=== PATIENT | male | born 2005 | race Hispanic/Latino ===

== ENCOUNTER 2024-11-30 14:48 | Emergency (ER) | payer SELFPAY ==
[2024-11-30 14:53] VITALS: BP 132/61; PULSE 83; RESP 18; TEMP 37.3; O2SAT 100; BMI 22.0
--- NOTE | 2024-11-30 15:56 | ED_ITS ---
HPI - Wound/Laceration <OSCAR Koenig Last Filed: 11/30/24 17:45> General Chief Complaint: Wound/Laceration Stated Complaint: RT leg laceration Time Seen by Provider: 11/30/24 15:53 Source: patient Mode of arrival: Wheelchair History of Present Illness HPI narrative: This is a 19-year-old male presents emergency department due to a right thigh laceration. He was using a sizable when the wood slipped out from under him and he cut his right medial lateral distal thigh. States that there was some oozing blood but that stopped. Denies any numbness. Denies any changes in range of motion although it does feel limited due to pain. Tetanus is not up-to-date. Related Data Previous Rx's ?Medication ?Instructions ?Recorded cephalexin 500 mg capsule 500 mg PO QID #20 caps 11/30 Allergies Allergy/AdvReac Type Severity Reaction Status Date / Time No Known Allergies Allergy Mild Verified 11/30/24 14:59 Review of Systems <OSCAR Koenig Last Filed: 11/30/24 17:45> Review of Systems Narrative: GENERAL: Denies chills, fatigue, malaise, fever, sweats. HEENT: Denies sinus pain, ear pain, sore throat, difficulty swallowing, dizziness. RESPIRATORY: Denies dyspnea, cough, wheezing, hemoptysis, sputum. CARDIOVASCULAR: Denies chest pain, palpitations, orthopnea, edema, GASTROINTESTINAL: Denies nausea, vomiting, abdominal pain, diarrhea, constipation, melena. : Denies dysuria, frequency, incontinence, hematuria, urinary retention. MUSCULOSKELETAL: Right thigh laceration SKIN: Denies rash, skin lesions, or other NEUROLOGIC: Denies weakness, headache, numbness, change in speech, confusion, seizures, incoordination. PSYCHIATRIC: No concerning psychosocial issues. 12 point review of systems is negative except for those stated above Patient History <OSCAR Koenig Last Filed: 11/30/24 17:45> Social History Smoking Status: Never smoker Smoking Status: Never smoker Exam <OSCAR Koenig Last Filed: 11/30/24 17:45> Narrative Exam Narrative: GENERAL: Well-developed patient, in mild distress. HEAD: Atraumatic. Normocephalic. EYES: Pupils equal round and reactive. Extraocular motions intact. No scleral icterus. No injection or drainage. ENT: Nose without bleeding, purulent drainage. Throat without erythema, tonsillar hypertrophy or exudate. Airway patent. NECK: Trachea midline. Non tender EXTREMITIES: approximately 4 cm in length laceration to the right mediolateral distal thigh. Patient is able to extend and flex the knee although somewhat limited by pain. No significant gross contamination NEURO: AOx3. SKIN: No rash or erythema of visible areas Initial Vital Signs Initial Vital Signs: Vital Signs Temperature 99.1 F 11/30/24 14:53 Pulse Rate 83 11/30/24 14:53 Respiratory Rate 18 11/30/24 14:53 Blood Pressure 132/61 11/30/24 14:53 Pulse Oximetry 100 11/30/24 14:53 Oxygen Delivery Method Room Air 11/30/24 14:53 <Maida Ramirez DO - Last Filed: 11/30/24 18:34> Initial Vital Signs Initial Vital Signs: Vital Signs Temperature 99.1 F 11/30/24 14:53 Pulse Rate 83 11/30/24 14:53 Respiratory Rate 18 11/30/24 14:53 Blood Pressure 132/61 11/30/24 14:53 Pulse Oximetry 100 11/30/24 14:53 Oxygen Delivery Method Room Air 11/30/24 14:53 Procedures <Alfredo Avila PA-C - Last Filed: 11/30/24 17:45> Laceration Repair Laceration 1: Time of procedure: 17:37 Site: lower extremity Side (If applicable): right Size (cm): 4 Description: linear Depth: simple, single layer Local Anesthetic: lidocaine 1% and with epi Amount of anesthesia used (mL): 6 Pre-repair: irrigated extensively and cleansed with chlorhexadine Skin layer closed with: nylon Skin layer suture size: 4-0 Number of sutures: 6 Technique: simple, interrupted Course <OSCAR Koenig Last Filed: 11/30/24 17:45> Orders Ordered: Discontinued Medications Lidocaine/Epinephrine (Lidocaine 1% W/Epi 10ml) 4 ml INJ INTRA-OP ONE Stop: 11/30/24 16:02 Last Admin: 11/30/24 16:18 Dose: 4 ml Documented By: ADILENE Tetanus/Diphtheria Toxoids (Tetanus Diphtheria Toxoids 0.5 Ml Vial) 0.5 ml IM .ONCE ONE Stop: 11/30/24 15:55 Last Admin: 11/30/24 16:17 Dose: 0.5 ml Documented By: ADILENE Vital Signs Vital signs: Vital Signs - 8 hr 11/30/24 14:53 11/30/24 17:53 Temperature 99.1 F Pulse Rate 83 81 Respiratory Rate 18 17 Blood Pressure 132/61 129/60 Pulse Oximetry 100 99 Oxygen Delivery Method Room Air Room Air <Maida Ramirez DO - Last Filed: 11/30/24 18:34> Orders Ordered: Discontinued Medications Lidocaine/Epinephrine (Lidocaine 1% W/Epi 10ml) 4 ml INJ INTRA-OP ONE Stop: 11/30/24 16:02 Last Admin: 11/30/24 16:18 Dose: 4 ml Documented By: ADILENE Tetanus/Diphtheria Toxoids (Tetanus Diphtheria Toxoids 0.5 Ml Vial) 0.5 ml IM .ONCE ONE Stop: 11/30/24 15:55 Last Admin: 11/30/24 16:17 Dose: 0.5 ml Documented By: ADILENE Vital Signs Vital signs: Vital Signs - 8 hr 11/30/24 14:53 11/30/24 17:53 Temperature 99.1 F Pulse Rate 83 81 Respiratory Rate 18 17 Blood Pressure 132/61 129/60 Pulse Oximetry 100 99 Oxygen Delivery Method Room Air Room Air MDM - Wound/Laceration <Alfredo Avila PA-C - Last Filed: 11/30/24 17:45> MDM Narrative Medical decision making narrative: ED course: This is a 19-year-old male presenting to the emergency department due to a right thigh laceration. He was good extension of the knee and very low concern for any kind of tendon injury. Laceration was closed without complications using simple interrupted sutures. Very low concern for any kind of joint involvement. Laceration was through jeans with a dirty blade and prophylactic antibiotics will be prescribed. Tetanus updated CC: Leg laceration Complicating co-morbidities: None Data collected from: Previous notes Medical records reviewed: This patient was not been to this emergency department in the past Differential considered, but not limited to: Laceration, joint injury, tendon injury Exam documented above, pertinent findings include: Maintain good extension of the knee Lab Test results independently reviewed as above. Pertinent findings: None obtained Imaging studies independently reviewed: None obtained Scores Used: None MIPS Elements: None Consultations: None Treatments: Tetanus, laceration repair Re-evaluations: None Discussion: Discussed plan with the patient was comfortable with the plan Diagnosis: Right leg laceration Disposition: see below, along with detailed discharge instructions that have been reviewed with patient as well as indications for ED re-evaluation and additional outpatient follow up Discharge Plan Departure Patient Disposition: Home Clinical Impression: Laceration Instructions: DI for Laceration Repair Activity Restrictions/Additional Instructions: Thank you for coming to the [facility] Emergency Department today. Please take the antibiotics as prescribed. You may be seen at any medical facility for suture removal in 10-14 days. Please do your best to limit your activity to not break open the stitches. Please return to the emergency department if you develop any fevers, redness spreading up or down your leg, or any other concerning signs or symptoms. I hope you feel better soon. Please follow up with your primary care provider within a week if your symptoms continue. If you do not have a primary care provider please contact the [facility] Resource line at [phone]. They will ask some questions about your medical history and help you get set up with a provider in the community. Cristal por venir hoy al Dep[facility]amento [facility] de [facility]. [place] los antibi?ticos seg?n lo recetado. Es posible que lo atiendan en cualquier centro m?dico para la extracci?n de suturas en 10 a 14 d?as. Cece todo lo posible por limitar simental actividad para no romper los puntos. Regrese al departamento de urgencias si presenta fiebre, enrojecimiento que se extiende hacia arriba o hacia abajo de la pierna, o cualquier otro signo o s?ntoma preocupante. Espero que se mejore pronto. Si los s?ntomas persisten, consulte con simental m?dico de cabecera dentro de compa semana. Si no tiene un m?dico de cabecera, comun?quese con la l?marcelo de [facility] al [phone]. Le ruby?n algunas preguntas sobre simental historial m?dico y le ayudar?n a encontrar un profesional en la comunidad. Prescriptions: New cephalexin 500 mg capsule 500 mg PO QID Qty: 20 0RF Stand Alone Forms: Patient Portal/API ED Sign-out <Maida Ramirez DO - Last Filed: 11/30/24 18:34> Cosign ED Attending Nilsa Attestation: I was immediately available in the department for consultation.
[2024-11-30] MEDS: TETANUS DIPHTHERIA TOXOIDS 0.5 ML VIAL IM (16:17)
[2024-11-30] MEDS: LIDOCAINE 1% W/EPI 10ML 4 ML INJ (16:18)
[2024-11-30 17:53] VITALS: BP 129/60; PULSE 81; RESP 17; O2SAT 99
== END 2024-11-30 17:55 | disposition home or self-care (01) ==
PROVIDERS: Emergency Provider Physician Assistant Medical
DX: S71.111A Laceration without foreign body, right thigh, initial encounter (principal); W45.8XXA Other foreign body or object entering through skin, initial encounter; Z23 Encounter for immunization
CPT/HCPCS: 12002; 90471; 90714; 99283; 99284